=== PATIENT | female | born 1960 | race Caucasian/White ===

== ENCOUNTER → 2021-08-29 14:19 | Outpatient (CLI) | payer OTHER, SELFPAY ==
--- NOTE | 2021-08-29 14:31 | CT_ITS ---
STUDY: CT RIGHT ANKLE WITHOUT CONTRAST REASON FOR EXAM: Female, 61 years old. PAIN IN R ANKLE AND JOINTS OF R FOOT RADIATION DOSAGE (If Supplied By Facility): CTDIvol = ( 15.35 ) mGy, DLP = ( 472.73 ) mGycm TECHNIQUE: Thin section transaxial imaging of the ankle was obtained, with sagittal and coronal reconstructed images. Individualized dose optimization techniques were used for this CT. COMPARISON: None. FINDINGS: Normal visualized distal tibia and fibula. Normal tibiotalar articulation and talar dome. Normal talus, calcaneus, navicular and cuboid tarsal bones. Normal subtalar, talonavicular and calcaneocuboid articulations. Normal navicular-cuneiform, cuneiform tarsal bones and intercuneiform articulations. Normal tarsometatarsal articulations and visualized metatarsi. The soft tissue structures are grossly normal. CT/Extremity Lower without Contra IMPRESSION: Normal CT examination of the ankle. Electronically Signed: Casa Forte MD at 15:05 EDT ,
== END ==
LOC: CT 14:28
PROVIDERS: PCP Internal Medicine
DX: M25.571 Pain in right ankle and joints of right foot (principal)
CPT/HCPCS: 73700

== ENCOUNTER 2023-03-12 08:30 | Outpatient (RCR) | payer OTHER, SELFPAY ==
--- NOTE | 2022-12-28 09:38 | HP.PTEVAL ---
Patient's Visit Information Visit Information Visit Information: VAN DIAZ is a 62 year old F referred to Physical Therapy by KRISHAN MARLOW with a diagnosis of R reconstructive hindfoot osteotomy and lapidus bunionectomy. Date of Evaluation: 12/23/22 Physical Therapist: James Bishop DPT Visit Plan Frequency: 2x /Week Duration: 4 Weeks Plan: Start with ankle DF and great toe extension on R foot. Add in strengthening exercises both ankle and hip. Add in gait instruction working on forefoot rocker moment. Subjective Subjective: Pt. is here today for her initial evaluation with diagnosis of deltoid ligament sprain, post tib tendinitis. Pt. ended up having a R reconstructive hindfoot osteotomy and lapidus bunionectomy. Pt. had surgery in July 2022. Pt. needs to work on ROM and flexibility. Pt. reports overall doing well, but still feels tight in her great toe and ankle. Pt. is walking 1-2 miles per day a few days a week. She would like to get back into running, but understands that she is a ways out from this. Pt. 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 Pt. denies N/T in either LE. Pain R foot: Pain Intensity (Out of 10): 0 Pain Intensity Range: 0 Balance/Special Test Scores Lower Extremity Functional Score: 39 Goals Goal 1:: LTG: pt. to be I with HEP. Goal Time Frame: 4-6 Weeks Goal 2:: STG: Pt. to be able to recreationally walking 2-3 miles without increase in symptoms. Goal Time Frame: 2-4 Weeks Goal 3:: LTG: Pt. to have normal gait pattern without increase in symptoms. Goal Time Frame: 4-6 Weeks Goal 4:: LTG: Pt. to have full 5/5 strength throughout Goal Time Frame: 4-6 Weeks Goal 5:: LTG: pt. to have increased great toe extension to at least 15deg allowing for improved forefoot rocker moment with gait. Goal Time Frame: 4-6 Weeks Rehabilitation Potential Physical Therapy Diagnosis: Pt. has signs and symptoms consistent with R reconstructive hindfoot osteotomy and lapidus bunionectomy. Pt. has marked loss of great toe extension, weakness and tightness of her ankle. Pt. would benefit from PT to address the above limitations progressing back to all walking and recreational activitiies without limitations. Rehabilitation Potential: Excellent Anticipated Interventions Patient/Client Instruction: Educate patient on: Condition, Plan of Care, Risk Factors and Benefits of Fitness Program For the Purpose of:: To facilitate caregiver knowledge, To improve self management, To prevent re-injury, To improve ability to perform tasks related to life management and To improve tolerance to ADL's Therapeutic Exercise to Include: Strength training, Power training, Postural training, Flexibilty training, Gait and locomotor training, Passive ROM and Active ROM For the Purpose of:: To decrease pain, To increase ROM, To improve nutrient delivery to tissue, To increase oxygenation perfusion, To improve muscle performance and motor function, To improve ability to perform ADL's, To improve gait and locomotor functions, To improve health of tissue and To decrease soft tissue restriction Text: Thank you for the opportunity to evaluate your patient. For Medicare and Medicare HMO plans, please review the plan of care and approve it. It will need to be FAXED BACK to us at [phone] for Medicare purposes. For Medicare only, by signing this I certify the plan of care. Please let me know if there are questions or concerns regarding this plan of care. Physician Signature: Date:
--- NOTE | 2023-03-12 09:32 | HP.PTREVAL_ITS ---
Re-Evaluation Intro: KRISHAN MARLOW, It has been my pleasure to treat MAXIMINO DIAZ over the last 9 visits for R reconstructive hindfoot osteotomy and lapidus bunionectomy. Please see the progress note below for an update on the physical therapy plan of care! Subjective Subjective: Pt. reports no pain pre treatment. HEP Compliant. Pt. to see physician next week. Pt. reports overall doing well. 70% better overall. Objective Objective/Function: Pt. is overall doing very well. No issues with walking much better rocker moment. Stairs: normal gait pattern noted, normal descending reciprocally. strength: 5/5, does have some issues with controlled SL heel raises on RLE. Maximino is doing very well, she does have some aspirations of running. I am not sure on what physician would recommend about progressing. She is to follow up with them next week. I am able to progress her with this program, but was curious on how physician would like to progress. Plan Plan Plan: Pt. to follow up with physician next week and progress per physician. Pt. to call me early next week and will progress plan accordingly. Balance/Gait/Functional tests Balance/Special Test Scores Lower Extremity Functional Score: 62 Goals Goals Goal 1:: LTG: pt. to be I with HEP. Goal Time Frame: 4-6 Weeks Goal Progress: Goal Met Goal 2:: STG: Pt. to be able to recreationally walking 2-3 miles without increase in symptoms. Goal Time Frame: 2-4 Weeks Goal Progress: Goal Met Goal 3:: LTG: Pt. to have normal gait pattern without increase in symptoms. Goal Time Frame: 4-6 Weeks Goal Progress: Goal Met Goal 4:: LTG: Pt. to have full 5/5 strength throughout Goal Time Frame: 4-6 Weeks Goal Progress: Goal Met Goal 5:: LTG: pt. to have increased great toe extension to at least 15deg allowing for improved forefoot rocker moment with gait. Goal Time Frame: 4-6 Weeks Goal Progress: Goal Met Anticipated Interventions Anticipated Interventions Patient/Client Instruction: Educate patient on: Condition, Plan of Care, Risk Factors and Benefits of Fitness Program For the Purpose of:: To facilitate caregiver knowledge, To improve self management, To prevent re-injury, To improve ability to perform tasks related to life management and To improve tolerance to ADL's Therapeutic Exercise to Include: Strength training, Power training, Postural training, Flexibilty training, Gait and locomotor training, Passive ROM and Active ROM For the Purpose of:: To decrease pain, To increase ROM, To improve nutrient delivery to tissue, To increase oxygenation perfusion, To improve muscle performance and motor function, To improve ability to perform ADL's, To improve gait and locomotor functions, To improve health of tissue and To decrease soft tissue restriction Re-Evaluation Ending Re-evaluation ending: Please do not hesitate to contact me at [phone] by phone or Fax: if you have questions or concerns regarding this new plan of care! Sincerely, James Bishop DPT
== END 2023-03-12 19:00 | disposition home or self-care (01) ==
LOC: PT 08:30
PROVIDERS: PCP Internal Medicine
DX: S93.421D Sprain of deltoid ligament of right ankle, subsequent encounter (principal); M76.821 Posterior tibial tendinitis, right leg
CPT/HCPCS: 97110; 97161; 97164